=== PATIENT | male | born 1940 | race Asian ===

== ENCOUNTER 2018-08-26 16:51 | Inpatient (IN) | payer OTHER ==
[~2018-08-26] VITALS: Ht 167.6 cm; Wt 67.1 kg
[2018-08-26 16:56] VITALS: BP 131/75
[2018-08-26] MEDS ORDERED: NACL 0.9% 1,000 ML IV SCH (17:51)
[2018-08-26] MEDS ORDERED: ONDANSETRON 4 MG/2 ML VIAL IVP ONE (17:55)
[2018-08-26 19:18] LABS: BASOPHILS # (AUTO) 0.1 K/uL (0.00-0.22); BASOPHILS % (AUTO) 0.6 % (0.0-2.0); EOSINOPHILS % (AUTO) 0.3 % (0.0-4.0); HEMATOCRIT 26.3 % (36-52); HEMOGLOBIN 8.5 g/dL (12.0-18.0); LYMPHOCYTES # (AUTO) 1.9 K/uL (2.0-11.5); LYMPHOCYTES % (AUTO) 16.4 % (20.5-51.1); MEAN CORPUSCULAR HEMOGLOBIN 32 pg (27-31); MEAN CORPUSCULAR HGB CONC 33 g/dL (33-37); MEAN CORPUSCULAR VOLUME 97.3 fL (80-94); MONOCYTES # (AUTO) 0.5 K/uL (0.8-1.0); MONOCYTES % (AUTO) 4.1 % (1.7-9.3); NEUTROPHILS # (AUTO) 9.1 K/uL (1.8-7.7); NEUTROPHILS % (AUTO) 78.6 % (42.2-75.2); PLATELET COUNT (AUTO) 182 K/uL (140-450); RED CELL DISTRIBUTION WIDTH 14.3 % (11.6-13.7); WHITE BLOOD COUNT (AUTO) 11.5 K/uL (4.8-10.8)
[2018-08-26 19:24] LABS: APPEARANCE,URINE CLEAR (CLEAR); BILIRUBIN,URINE NEGATIVE (NEGATIVE); BLOOD, URINE NEGATIVE (NEGATIVE); COLOR,URINE YELLOW (YELLOW); LEUKOCYTE ESTERASE ,URINE NEGATIVE (NEGATIVE); NITRITE, URINE NEGATIVE (NEGATIVE); UGLUCOSE NEGATIVE (NEGATIVE)
[2018-08-26 19:31] LABS: BARBITURATE, URINE NEG. ng/ml (NEG <=200); BENZODIAZEPINE, URINE NEG. ng/mL (NEG <=200); CANNABINOID, URINE NEG. ng/mL (NEG <=50); COCAINE, URINE NEG. ng/mL (NEG <=300); OPIATE, URINE POS. ng/mL (NEG <=2000); PHENCYCLIDINE SCREEN,URINE NEG. ng/mL (NEG <=25)
[2018-08-26 19:40] LABS: ALBUMIN 3.2 g/dL (3.4-5.0); AMYLASE 21 U/L (25-115); ASPARTATE AMINOTRANSFERASE 17 U/L (15-37); CARBON DIOXIDE 21.9 mmol/L (21-32); CREATININE 1.3 mg/dL (0.7-1.3); GLUCOSE 213 mg/dL (74-106); LIPASE -321 U/L (73-393); TOTAL BILIRUBIN 0.6 mg/dL (0.0-1.0); UREA NITROGEN, BLOOD 57 mg/dL (7-18)
[2018-08-26 19:53] LABS: PROTHROMBIN TIME 13.7 secs (10.8-13.4)
[2018-08-26 19:54] LABS: ANION GAP 17.6 (8-16); CHLORIDE 104 mmol/L (98-107); POTASSIUM 4.5 mmol/L (3.5-5.1); SODIUM SERUM 139 mmol/L (136-145)
[2018-08-26] MEDS ORDERED: MORPHINE SULFATE 4 MG/ML SYR IVP PRN (20:40)
[2018-08-26] MEDS ORDERED: LORazepam 2 MG/ML VIAL IM/IVP PRN (20:40)
[2018-08-26] MEDS ORDERED: ACETAMINOPHEN 325 MG TAB PO PRN (20:40)
[2018-08-26] MEDS ORDERED: DOCUSATE SODIUM 100 MG GELCAP PO PRN (20:40)
[2018-08-26] MEDS ORDERED: ZOLPIDEM 5 MG TAB PO PRN (20:40)
[2018-08-26] MEDS ORDERED: ONDANSETRON 4 MG/2 ML VIAL IM/IVP PRN (20:40)
[2018-08-26] MEDS ORDERED: HYDROcodone/APAP 5/325 MG 1 TAB TAB PO PRN (20:40)
[2018-08-26 21:11] LABS: CHOL/HDL RATIO 3.9 (1-4.5); FREE T4 (FREE THYROXINE) 0.96 ng/dL (0.76-1.46); MAGNESIUM 1.5 mg/dL (1.8-2.4); PHOSPHORUS 3.5 mg/dL (2.5-4.9); THYROID STIMULATING HORMONE 1.82 uIU/mL (0.34-3.74)
[2018-08-26] MEDS: NACL 0.9% 1,000 ML IV SCH (22:00)
[2018-08-26] MEDS ORDERED: MECLIZINE 25 MG TAB PO PRN (22:20)
[2018-08-26 23:00] VITALS: BP 103/50
[2018-08-26 23:20] VITALS: BP 117/60
[2018-08-26 23:22] VITALS: BP 99/55
[2018-08-26 23:24] VITALS: BP 70/48
[2018-08-26] MEDS ORDERED: METF500T PO (23:53)
[2018-08-26] MEDS ORDERED: RIVA20TA PO (23:53)
[2018-08-26] MEDS ORDERED: ATOR40TA PO (23:53)
[2018-08-26] MEDS ORDERED: TICA90TA PO (23:53)
[2018-08-26] MEDS ORDERED: TERA5CAP8 PO (23:53)
[2018-08-26] MEDS ORDERED: ZYL300 PO (23:53)
[2018-08-26] MEDS ORDERED: METO25TA PO (23:53)
[2018-08-27] MEDS ORDERED: MAGNESIUM OXIDE 400 MG TAB PO SCH (01:00)
[2018-08-27 08:00] VITALS: BP 114/58
[2018-08-27] MEDS: NACL 0.9% 1,000 ML IV SCH ×2 (08:00→11:41)
[2018-08-27] MEDS ORDERED: RANEX500 PO (08:26)
[2018-08-27] MEDS ORDERED: AMYL-40 PO (08:27)
[2018-08-27] MEDS ORDERED: NON-FORMULARY ITEM (Lipase/Protease/Amylase (Creon Dr 36,000 Units Capsule) 1 ECC) PO SCH (09:00)
[2018-08-27] MEDS ORDERED: RIVAROXABAN 10 MG TAB PO SCH (09:00)
[2018-08-27] MEDS ORDERED: TERAZOSIN 5 MG CAP PO SCH (09:00)
[2018-08-27] MEDS ORDERED: NON-FORMULARY ITEM (Ticagrelor (Brilinta) 90 MG) PO SCH (09:00)
[2018-08-27] MEDS: metFORMIN 500 MG TAB PO SCH ×2 (09:30→20:37)
[2018-08-27] MEDS: RANOLAZINE 500 MG TER PO SCH ×2 (09:31→20:38)
[2018-08-27] MEDS: ALLOPURINOL 300 MG TAB PO SCH (09:31)
[2018-08-27] MEDS: MAGNESIUM OXIDE 400 MG TAB PO SCH (09:32)
[2018-08-27] MEDS: AMYLASE/LIPASE/PROTEASE 1 CAPDR PO SCH (09:32)
[2018-08-27] MEDS ORDERED: TERAZOSIN 1 MG CAP PO SCH (09:33)
[2018-08-27] MEDS: ATORVASTATIN 20 MG TAB PO SCH (09:42)
[2018-08-27] MEDS ORDERED: DEXTROSE 50% 50 ML SYR IVP PRN (10:05)
[2018-08-27] MEDS: INSULIN LISPRO SLIDING SCALE 100 UNITS/ML VIAL SUBQ PRN ×3 (11:33→20:30)
[2018-08-27] MEDS: BLOOD GLUCOSE MONITORING 1 DEV DEV FS SCH ×3 (11:33→20:28)
[2018-08-27] MEDS ORDERED: VITD1000 PO (12:34)
[2018-08-27] MEDS ORDERED: MAG SULF 2000 MG/WATER PREMIX 50 ML IV SCH (14:00)
[2018-08-27 15:45] VITALS: BP 114/55
[2018-08-27] MEDS: MIDODRINE 5 MG TAB PO SCH (19:17)
[2018-08-27 20:00] VITALS: BP 116/62
[2018-08-28 04:00] VITALS: BP 100/50
[2018-08-28] MEDS: BLOOD GLUCOSE MONITORING 1 DEV DEV FS SCH ×4 (05:43→20:06)
[2018-08-28] MEDS: INSULIN LISPRO SLIDING SCALE 100 UNITS/ML VIAL SUBQ PRN ×3 (05:45→20:04)
[2018-08-28] MEDS: MIDODRINE 5 MG TAB PO SCH ×3 (05:49→18:14)
[2018-08-28 06:40] LABS: BASOPHILS # (AUTO) 0.1 K/uL (0.00-0.22); BASOPHILS % (AUTO) 0.7 % (0.0-2.0); EOSINOPHILS # (AUTO) 0.2 K/uL (0-0.4); EOSINOPHILS % (AUTO) 2.2 % (0.0-4.0); LYMPHOCYTES # (AUTO) 2.2 K/uL (2.0-11.5); LYMPHOCYTES % (AUTO) 19.8 % (20.5-51.1); MEAN CORPUSCULAR HEMOGLOBIN 33 pg (27-31); MEAN CORPUSCULAR HGB CONC 34 g/dL (33-37); MEAN CORPUSCULAR VOLUME 98.1 fL (80-94); MONOCYTES # (AUTO) 0.7 K/uL (0.8-1.0); MONOCYTES % (AUTO) 6.5 % (1.7-9.3); NEUTROPHILS # (AUTO) 7.8 K/uL (1.8-7.7); NEUTROPHILS % (AUTO) 70.8 % (42.2-75.2); PLATELET COUNT (AUTO) 167 K/uL (140-450); RED BLOOD CELL COUNT(AUTO) 1.62 MIL/uL (4.20-6.10); RED CELL DISTRIBUTION WIDTH 14.3 % (11.6-13.7)
[2018-08-28 06:55] LABS: ANION GAP 14.7 (8-16); CHLORIDE 109 mmol/L (98-107); CREATININE 0.9 mg/dL (0.7-1.3); GLUCOSE 180 mg/dL (74-106); POTASSIUM 3.7 mmol/L (3.5-5.1); SODIUM SERUM 142 mmol/L (136-145); UREA NITROGEN, BLOOD 33 mg/dL (7-18)
[2018-08-28 07:10] LABS: HEMATOCRIT 15.9 % (36-52); HEMOGLOBIN 5.4 g/dL (12.0-18.0)
[2018-08-28] MEDS ORDERED: NACL 0.9% 1,000 ML IV SCH (07:25)
[2018-08-28] MEDS ORDERED: ACETAMINOPHEN EXTRA STRENGTH 500 MG TAB PO SCH (07:35)
[2018-08-28] MEDS ORDERED: PANTOPRAZOLE 40 MG INJ VIAL IVP SCH (07:36)
[2018-08-28 08:00] VITALS: BP 107/45
[2018-08-28] MEDS ORDERED: TERAZOSIN 1 MG CAP PO SCH (09:00)
[2018-08-28] MEDS: TAMSULOSIN 0.4 MG CAP PO SCH (09:25)
[2018-08-28] MEDS: metFORMIN 500 MG TAB PO SCH ×2 (09:26→19:59)
[2018-08-28] MEDS: ALLOPURINOL 300 MG TAB PO SCH (09:26)
[2018-08-28] MEDS: AMYLASE/LIPASE/PROTEASE 1 CAPDR PO SCH (09:27)
[2018-08-28] MEDS: ATORVASTATIN 20 MG TAB PO SCH (09:27)
[2018-08-28] MEDS: MAGNESIUM OXIDE 400 MG TAB PO SCH (09:27)
[2018-08-28] MEDS: RANOLAZINE 500 MG TER PO SCH ×2 (09:28→19:59)
[2018-08-28 12:00] VITALS: BP 126/56
[2018-08-28 12:20] LABS: FOLIC ACID 16.6 ng/mL (>3.0)
[2018-08-28 16:00] VITALS: BP 119/57
[2018-08-28 20:00] VITALS: BP 142/65
[2018-08-28 23:24] LABS: HEMATOCRIT 25.5 % (36-52); HEMOGLOBIN 8.5 g/dL (12.0-18.0)
[2018-08-28 23:37] VITALS: BP 144/63
[2018-08-29] VITALS (10 sets, daily range): BP systolic 121–147; BP diastolic 57–71
[2018-08-29] MEDS: BLOOD GLUCOSE MONITORING 1 DEV DEV FS SCH ×4 (05:54→21:08)
[2018-08-29] MEDS ORDERED: HUMSLIDE SUBQ (05:56)
[2018-08-29] MEDS ORDERED: GLUC-805 FS (05:56)
[2018-08-29] MEDS ORDERED: D50SYR IVP (05:56)
[2018-08-29] MEDS ORDERED: PRO5 PO (05:56)
[2018-08-29] MEDS ORDERED: PANT40EC PO (05:57)
[2018-08-29] MEDS ORDERED: FERR325E14 PO (05:58)
[2018-08-29] MEDS: MIDODRINE 5 MG TAB PO SCH ×3 (06:19→19:40)
[2018-08-29] MEDS ORDERED: diphenhydrAMINE 50 MG/ML VIAL ONE (07:30)
[2018-08-29] MEDS ORDERED: MIDAZOLAM 2 MG/2 ML VIAL ONE (07:30)
[2018-08-29] MEDS ORDERED: fentaNYL 0.05 MG/ML VIAL ONE (07:30)
[2018-08-29] MEDS ORDERED: fentaNYL 0.05 MG/ML VIAL IVP ONE (08:20)
[2018-08-29] MEDS ORDERED: MIDAZOLAM 2 MG/2 ML VIAL IV ONE (08:20)
[2018-08-29] MEDS: metFORMIN 500 MG TAB PO SCH ×2 (09:33→20:59)
[2018-08-29] MEDS: ATORVASTATIN 20 MG TAB PO SCH (09:33)
[2018-08-29] MEDS: ALLOPURINOL 300 MG TAB PO SCH (09:33)
[2018-08-29] MEDS: AMYLASE/LIPASE/PROTEASE 1 CAPDR PO SCH (09:33)
[2018-08-29] MEDS: MAGNESIUM OXIDE 400 MG TAB PO SCH (09:33)
[2018-08-29] MEDS: TAMSULOSIN 0.4 MG CAP PO SCH (09:33)
[2018-08-29] MEDS: RANOLAZINE 500 MG TER PO SCH ×2 (09:34→20:59)
[2018-08-29 11:26] LABS: BASOPHILS # (AUTO) 0.1 K/uL (0.00-0.22); BASOPHILS % (AUTO) 0.8 % (0.0-2.0); EOSINOPHILS # (AUTO) 0.2 K/uL (0-0.4); HEMOGLOBIN 7.8 g/dL (12.0-18.0)
[2018-08-29 11:30] LABS: ANION GAP 12.8 (8-16); CARBON DIOXIDE 22.9 mmol/L (21-32); CHLORIDE 105 mmol/L (98-107); CREATININE 0.9 mg/dL (0.7-1.3); EOSINOPHILS % (AUTO) 2.3 % (0.0-4.0); GLUCOSE 183 mg/dL (74-106); LYMPHOCYTES # (AUTO) 1.8 K/uL (2.0-11.5); LYMPHOCYTES % (AUTO) 23.7 % (20.5-51.1); MEAN CORPUSCULAR HEMOGLOBIN 31 pg (27-31); MEAN CORPUSCULAR HGB CONC 34 g/dL (33-37); MEAN CORPUSCULAR VOLUME 91.9 fL (80-94); MONOCYTES # (AUTO) 0.5 K/uL (0.8-1.0); NEUTROPHILS % (AUTO) 66.2 % (42.2-75.2); PLATELET COUNT (AUTO) 150 K/uL (140-450); POTASSIUM 3.7 mmol/L (3.5-5.1); RED BLOOD CELL COUNT(AUTO) 2.51 MIL/uL (4.20-6.10); RED CELL DISTRIBUTION WIDTH 16.2 % (11.6-13.7); SODIUM SERUM 137 mmol/L (136-145); UREA NITROGEN, BLOOD 12 mg/dL (7-18); WHITE BLOOD COUNT (AUTO) 7.5 K/uL (4.8-10.8)
[2018-08-29] MEDS ORDERED: ACETAMINOPHEN EXTRA STRENGTH 500 MG TAB PO SCH (12:40)
[2018-08-29] MEDS: MAGNESIUM CITRATE 300 ML BTL PO SCH ×2 (13:29→20:00)
[2018-08-29] MEDS: BISACODYL 5 MG TABEC PO SCH ×2 (13:30→20:00)
[2018-08-29] MEDS: INSULIN LISPRO SLIDING SCALE 100 UNITS/ML VIAL SUBQ PRN ×2 (13:32→18:02)
[2018-08-29] MEDS ORDERED: FOLI0.8T PO (14:20)
[2018-08-29] MEDS ORDERED: BOWEL EVACUANT DRINK 4,000 ML PDS PO SCH (18:45)
[2018-08-29] MEDS ORDERED: TAMS0.4C96 PO (19:03)
[2018-08-29] MEDS ORDERED: PANTOPRAZOLE 40 MG INJ VIAL IVP SCH (21:00)
[2018-08-29 21:08] LABS: BASOPHILS # (AUTO) 0.1 K/uL (0.00-0.22); BASOPHILS % (AUTO) 0.7 % (0.0-2.0); EOSINOPHILS # (AUTO) 0.2 K/uL (0-0.4); HEMATOCRIT 31.9 % (36-52); HEMOGLOBIN 10.6 g/dL (12.0-18.0); LYMPHOCYTES # (AUTO) 2.2 K/uL (2.0-11.5); LYMPHOCYTES % (AUTO) 22.1 % (20.5-51.1); MEAN CORPUSCULAR HEMOGLOBIN 31 pg (27-31); MEAN CORPUSCULAR HGB CONC 33 g/dL (33-37); MEAN CORPUSCULAR VOLUME 92.4 fL (80-94); MONOCYTES # (AUTO) 0.7 K/uL (0.8-1.0); MONOCYTES % (AUTO) 6.8 % (1.7-9.3); NEUTROPHILS # (AUTO) 6.9 K/uL (1.8-7.7); NEUTROPHILS % (AUTO) 68.4 % (42.2-75.2); PLATELET COUNT (AUTO) 175 K/uL (140-450); RED BLOOD CELL COUNT(AUTO) 3.45 MIL/uL (4.20-6.10); RED CELL DISTRIBUTION WIDTH 16.5 % (11.6-13.7); WHITE BLOOD COUNT (AUTO) 10.1 K/uL (4.8-10.8)
[2018-08-30] VITALS: BP 117/59
== END 2018-08-30 01:45 | DRG 377 ==
LOC: MED 16:51 → MTU 20:43
PROVIDERS: ADMIT General Practice; ATTEND General Practice
PROC: 3E0234Z Introduction of Serum, Toxoid and Vaccine into Muscle, Percutaneous Approach (ICD-10-PCS; principal; 2018-08-26)
PROC: 30253N1 (ICD-10-PCS; 2018-08-26)
PROC: 0DJ08ZZ Inspection of Upper Intestinal Tract, Via Natural or Artificial Opening Endoscopic (ICD-10-PCS; 2018-08-29)
DX: K92.2 Gastrointestinal hemorrhage, unspecified (principal); N17.0 Acute kidney failure with tubular necrosis; E44.0 Moderate protein-calorie malnutrition; G90.8 Other disorders of autonomic nervous system; I95.1 Orthostatic hypotension; E86.0 Dehydration; E83.42 Hypomagnesemia; M10.9 Gout, unspecified; D64.9 Anemia, unspecified; E11.65 Type 2 diabetes mellitus with hyperglycemia; R26.81 Unsteadiness on feet; I10 Essential (primary) hypertension; I25.10 Atherosclerotic heart disease of native coronary artery without angina pectoris; I25.2 Old myocardial infarction; K80.20 Calculus of gallbladder without cholecystitis without obstruction; S00.83XA Contusion of other part of head, initial encounter; X58.XXXA Exposure to other specified factors, initial encounter; Z68.23 Body mass index [BMI] 23.0-23.9, adult; Z87.891 Personal history of nicotine dependence; Z95.5 Presence of coronary angioplasty implant and graft; Z23 Encounter for immunization; Y93.89 Activity, other specified; Y92.89 Other specified places as the place of occurrence of the external cause; Y99.8 Other external cause status
CPT/HCPCS: 36415; 70450; 71045; 73080; 73110; 80048; 80053; 80305; 81003; 82150; 82272; 82607; 82728; 82746; 82948; 83036; 83540; 83690; 83735; 83880; 84100; 84439; 84443; 84484; 85018; 85025; 85045; 85610; 85730; 86886; 86900; 86901; 86920; 87081; 90471; 90715; 93005; 93880; 96374; 97110; 97116; 97530; 99285; C9113; G0482; J1200; J1815; J2250; J2405; J3010; J3475; J7030; P9016; Q0092; Q0163